=== PATIENT | female | born 1960 | race African-American/Black ===

== ENCOUNTER 2017-03-22 10:58 | Inpatient (IN) | payer OTHER ==
[2017-03-22 12:49] VITALS: BMI 27.1
--- NOTE | 2017-03-22 15:01 | HP ---
CIWA Score - CIWA Score Nausea/Vomitin-No Nausea/No Vomiting Muscle Tremors: 4-Moderate,w/Arms Extend Anxiety: 4-Mod. Anxious/Guarded Agitation: 3 Paroxysmal Sweats: 2 Orientation: 0-Oriented Tacttile Disturbances: 3-Moderate Itch/Numb/Burn Auditory Disturbances: 0-None Visual Disturbances: 0-None Headache: 2-Mild CIWA-Ar Total Score: 18 Admission ROS BHS - HPI Chief Complaint: DETOX TX FOR ALCOHOL DEPENDENCE Allergies/Adverse Reactions: Allergies Allergy/AdvReac Type Severity Reaction Status Date / Time No Known Allergies Allergy Verified 03/22/17 12:56 History of Present Illness: 56 Y/O AA/FEMALE WITH A HX OF ALCOHOL AND COCAINE DEPENDENCE SEEKING DETOX TX Exam Limitations: No Limitations - Ebola screening Have you traveled outside of the country in the last 21 days: No Have you had contact with anyone from an Ebola affected area: No Have you been sick,other than usual withdrawal symptoms: No - Review of Systems Constitutional: Chills, Loss of Appetite, Night Sweats, Changes in sleep, Unintentional Wgt. Loss EENT: reports: Blurred Vision, Nose Bleeding, Nose Congestion, Dental Problems ( NO TEETH BILATERAL, WEARS DENTURES) Respiratory: reports: SOB with Exertion Cardiac: reports: Lightheadedness GI: reports: Diarrhea, Nausea, Poor Appetite, Poor Fluid Intake, Vomiting : reports: No Symptoms Reported Musculoskeletal: reports: Back Pain, Joint Pain, Muscle Pain, Other (HX ARTHRITIS) Integumentary: reports: No Symptoms Reported Neuro: reports: Headache, Numbness, Tingling, Tremors, Unsteady Gait, Dizziness Endocrine: reports: No Symptoms Reported Hematology: reports: Anemia ("SUPPOSED TO TAKE IRON PILL BUT NOT") Psychiatric: reports: Orientated x3, Anxious, Depressed (HX BIPOLAR; NOT CURRENTLY ON MEDS) Other Systems: Reviewed and Negative Patient History - Patient Medical History Hx Anemia: Yes Hx Asthma: No Hx Chronic Obstructive Pulmonary Disease (COPD): No Hx Cardiac Disorders: No Hx Hypertension: Yes (on meds) Hx Hypercholesterolemia: Yes (NOT CURRENTLY ON MEDS) HX Cerebrovascular Accident: Yes (MILD STROKE LEFT SIDE X 2-NO RESIDUAL WEAKNESS /EFFECTS) Hx Seizures: No Hx Diabetes: Yes (Type II DM) Hx Gastrointestinal Disorders: Yes (GERD-ON PPI IN THE PAST) Hx Genitourinary Disorders: No Hx Sexually Transmitted Disorders: No Hx Renal Disease (ESRD): No Hx Thyroid Disease: No Hx Human Immunodeficiency Virus (HIV): No (NEGATIVE HX) Hx Hepatitis C: Yes (NO TREATMENT) Hx Depression: Yes (NOT CURRENTLY ON MEDS) Hx Suicide Attempt: No Hx Bipolar Disorder: Yes Hx Schizophrenia: Yes - Patient Surgical History Past Surgical History: Yes Hx Neurologic Surgery: No Hx Cataract Extraction: No Hx Cardiac Surgery: No Hx Lung Surgery: No Hx Breast Surgery: No Hx Breast Biopsy: No Hx Abdominal Surgery: Yes Hx Appendectomy: No Hx Cholecystectomy: No Hx Genitourinary Surgery: No Hx Section: No Hx Orthopedic Surgery: Yes (nose fractured 20yrs ago) Other Surgical History: TUBAL LIGATION ABD HERNIA REPAIR A CHILD. Anesthesia Reaction: No - PPD History Previous Implant?: Yes Documented Results: Negative w/o proof Implanted On Prior [facility] Admission?: Yes Date: 01/27/13 Results: 0 mm - Reproductive History Patient is a Female of Child Bearing Age (11 -55 yrs old): Yes (POST MENOPAUSAL WOMAN) Last Menstrual Period: 12/09/10 LMP comment: AT 50 YRS OLD Patient : No - Smoking Cessation Smoking history: Current every day smoker Have you smoked in the past 12 months: Yes Aproximately how many cigarettes per day: 5 Hx Chewing Tobacco Use: No Initiated information on smoking cessation: Yes 'Breaking Loose' booklet given: 03/22/17 - Substance & Tx. History Hx Alcohol Use: Yes (BEER) Hx Substance Use: Yes (CRACK) Substance Use Type: Alcohol, Cocaine Hx Substance Use Treatment: Yes ([facility]) - Substances Abused Alcohol Route: Oral Frequency: Daily Amount used: 4 40 OZ Age of first use: 13 Date of Last Use: 03/22/17 Crack Route: Smoking Frequency: Daily Amount used: $40 Age of first use: 21 Date of Last Use: 03/19/17 Family Disease History - Family Disease History Family History: Denies (STSTES NO KNOWLEDGE) Admission Physical Exam S - Vital Signs Vital Signs: Vital Signs - 24 hr 03/22/17 12:48 Temperature 98.5 F Pulse Rate 154 H Respiratory 20 Rate Blood Pressure 148/89 - Physical General Appearance: Yes: Moderate Distress, Alcohol on Breath, Intoxicated, Irritable, Anxious HEENTM: Yes: EOMI, Normocephalic, SUNG, Pharynx Normal Respiratory: Yes: Chest Non-Tender, Lungs Clear, Normal Breath Sounds, No Respiratory Distress Breast: Yes: Breast Exam Deferred Cardiology: Yes: Regular Rhythm, Regular Rate, S1, S2 Abdominal: Yes: Normal Bowel Sounds, Non Tender, Soft Genitourinary: Yes: Other (N/C) Back: Yes: Within Normal Limits Musculoskeletal: Yes: full range of Motion, Gait Steady Extremities: Yes: Normal Range of Motion, Non-Tender 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 NML intact, Fully Oriented, Alert Integumentary: Yes: Dry, Warm Lymphatic: Yes: Within Normal Limits - Diagnostic (1) Alcohol dependence with uncomplicated withdrawal Current Visit: Yes Status: Acute (2) Type 2 diabetes mellitus Current Visit: Yes Status: Chronic (3) Hypertension Current Visit: Yes Status: Chronic Qualifiers: Hypertension type: essential hypertension Qualified Code(s): I10 - Essential (primary) hypertension (4) GERD (gastroesophageal reflux disease) Current Visit: Yes Status: Chronic Qualifiers: Esophagitis presence: without esophagitis Qualified Code(s): K21.9 - Gastro-esophageal reflux disease without esophagitis (5) Hx of hepatitis C Current Visit: Yes Status: Chronic (6) History of CVA (cerebrovascular accident) without residual deficits Current Visit: Yes Status: Suspected (7) History of anemia Current Visit: Yes Status: Suspected Cleared for Admission [facility] - Detox or Rehab [facility] Level of Care: Medically Managed Detox Regimen/Protocol: Librium [facility] Breath Alcohol Content Breath Alcohol Content: 0.224 Urine Pregancy Test - Result Urine Test Results: Negative- NO Line Present Urine Drug Screen - Results Drug Screen Negative: Yes
[2017-03-22] MEDS ORDERED: P-EPHED 60MG/TRIPROLIDI 2.5MG TABLET PO PRN (15:26)
[2017-03-22] MEDS ORDERED: NICOTINE POLACRILEX 2 MG GUM BUC PRN (15:26)
[2017-03-22] MEDS ORDERED: MAGNESIUM CITRATE 300 ML BOTTLE PO PRN (15:26)
[2017-03-22] MEDS ORDERED: MAGNESIUM HYDROX 2400MG/30ML ORAL SUSPENSION 30 ML CUP PO PRN (15:26)
[2017-03-22] MEDS ORDERED: hydrOXYzine PAMOATE 25 MG CAPSULE (FP) PO PRN (15:26)
[2017-03-22] MEDS ORDERED: guaiFENesin/D-METHORPHAN HB 10 ML UNIT-DOSE CUPS PO PRN (15:26)
[2017-03-22] MEDS ORDERED: chlordiazePOXIDE HCL 25 MG CAPSULE PO PRN (15:26)
[2017-03-22] MEDS ORDERED: chlordiazePOXIDE HCL 25 MG CAPSULE PO ONE (15:32)
[2017-03-22] MEDS: LISINOPRIL 10 MG TABLET (FP) PO SCH (17:16)
[2017-03-22] MEDS: LORATADINE 10 MG TABLET PO SCH (17:16)
[2017-03-22] MEDS: metFORMIN HCL 500 MG TABLET (FP) PO SCH (17:17)
[2017-03-22] MEDS: NICOTINE 14 MG/24 HOURS TOPICAL PATCH TD SCH (17:18)
[2017-03-22] MEDS: chlordiazePOXIDE HCL 25 MG CAPSULE PO SCH ×2 (17:19→22:33)
[2017-03-22 20:34] LABS: URINE APPEARANCE CLEAR; URINE BILIRUBIN NEGATIVE (NEGATIVE); URINE BLOOD NEGATIVE (NEGATIVE); URINE COLOR LTYELLOW; URINE GLUCOSE (UA) NEGATIVE (NEGATIVE); URINE KETONE NEGATIVE (NEGATIVE); URINE NITRITE NEGATIVE (NEGATIVE); URINE PROTEIN NEGATIVE (NEGATIVE); URINE UROBILINOGEN NEGATIVE E.U./dl (0.2-1.0)
[2017-03-22 20:36] LABS: URINE LEUK ESTERASE 1+ (NEGATIVE)
[2017-03-22 20:44] LABS: URINE BACTERIA FEW /hpf (NONE SEEN); URINE MUCUS RARE; URINE RBC <1 /hpf (0-3); URINE WBC 1 /hpf (3-5)
[2017-03-22] MEDS: IBUPROFEN 400 MG TABLET (FP) PO PRN (21:59)
[2017-03-22] MEDS: THIAMINE HCL 100 MG TABLET (FP) PO SCH (22:33)
[2017-03-22] MEDS: diphenhydrAMINE HCL 50 MG CAPSULE PO PRN (22:33)
[2017-03-22] MEDS: RANITIDINE HCL 150 MG TABLET (FP) PO SCH (22:33)
[2017-03-23] MEDS: diphenhydrAMINE HCL 50 MG CAPSULE PO PRN (01:51)
[2017-03-23] MEDS: IBUPROFEN 400 MG TABLET (FP) PO PRN ×2 (04:46→10:25)
[2017-03-23] MEDS: chlordiazePOXIDE HCL 25 MG CAPSULE PO SCH ×4 (04:48→22:48)
[2017-03-23] MEDS ORDERED: CYCLOBENZAPRINE HCL 10 MG TABLET (FP) PO PRN (06:21)
[2017-03-23] MEDS: metFORMIN HCL 500 MG TABLET (FP) PO SCH ×2 (07:40→17:25)
[2017-03-23 10:23] LABS: MCHC 29.2 g/dl (32.0-36.0); MEAN CELL VOLUME 62.4 fl (80-96); MEAN PLT VOLUME 9.9 fl (7.5-11.1); PLATELET COUNT 85 K/MM3 (134-434); RDW 18.8 % (11.6-15.6); WHITE BLOOD COUNT 7.4 K/mm3 (4.0-10.0)
[2017-03-23] MEDS: LORATADINE 10 MG TABLET PO SCH (10:23)
[2017-03-23] MEDS: RANITIDINE HCL 150 MG TABLET (FP) PO SCH ×2 (10:23→22:49)
[2017-03-23] MEDS: LISINOPRIL 10 MG TABLET (FP) PO SCH (10:23)
[2017-03-23] MEDS: ASPIRIN COATED 81 MG TABLET.EC PO SCH (10:23)
[2017-03-23] MEDS: PRENATAL VITAMINS W/ FOLIC ACID TABLET (FP) PO SCH (10:23)
[2017-03-23 10:27] LABS: MCH 18.2 pg (25.7-33.7)
[2017-03-23] MEDS: NICOTINE 14 MG/24 HOURS TOPICAL PATCH TD SCH (10:27)
--- NOTE | 2017-03-23 10:42 | PN ---
[facility] CIWA - CIWA Score Nausea/Vomitin-No Nausea/No Vomiting Muscle Tremors: 4-Moderate,w/Arms Extend Anxiety: 3 Agitation: 4-Moderately Restless Paroxysmal Sweats: 3 Orientation: 0-Oriented Tacttile Disturbances: 0-None Auditory Disturbances: 0-None Visual Disturbances: 0-None Headache: 1-Very Mild CIWA-Ar Total Score: 15 [facility] Progress Note (SOAP) Subjective: shakes sweats headache interrupted sleep body aches Objective: 03/23/17 10:40 Vital Signs Temperature 97.5 F L 03/23/17 09:56 Pulse Rate 89 03/23/17 09:56 Respiratory Rate 16 03/23/17 09:56 Blood Pressure 145/108 03/23/17 09:56 O2 Sat by Pulse Oximetry (%) Laboratory Tests 03/22/17 03/22/17 03/22/17 13:13 17:10 20:07 WBC RBC Hgb Hct MCV MCHC RDW Plt Count MPV POC Glucometer 158 86 Urine Color Ltyellow Urine Appearance Clear Urine pH 7.0 D Ur Specific [place] 1.010 Urine Protein Negative Urine Glucose (UA) Negative Urine Ketones Negative Urine Blood Negative Urine Nitrite Negative Urine Bilirubin Negative Urine Urobilinogen Negative Ur Leukocyte Esterase 1+ H Urine RBC <1 Urine WBC 1 Ur Epithelial Cells Rare Urine Bacteria Few Urine Mucus Rare 03/23/17 03/23/17 06:00 06:34 WBC 7.4 D RBC 4.26 Hgb 7.8 L D Hct 26.6 L D MCV 62.4 L D MCHC 29.2 L RDW 18.8 H D Plt Count 85 L MPV 9.9 D POC Glucometer 87 Urine Color Urine Appearance Urine pH Ur Specific [place] Urine Protein Urine Glucose (UA) Urine Ketones Urine Blood Urine Nitrite Urine Bilirubin Urine Urobilinogen Ur Leukocyte Esterase Urine RBC Urine WBC Ur Epithelial Cells Urine Bacteria Urine Mucus rest of labs pending H:H low; iron sulfate tid awake/alert ambulating no acute distress Assessment: 03/23/17 10:40 withdrawal sx Plan: continue detox increase fluids repeat cbc motrin/tylenol prn
[2017-03-23 10:54] LABS: CALCIUM 8.3 mg/dL (8.5-10.1)
[2017-03-23 11:01] LABS: ALK PHOS 77 U/L (45-117); ANION GAP 12 (8-16); BILIRUBIN,TOTAL 0.7 mg/dL (0.2-1.0); CO2 24 mmol/L (21-32); CREATININE 0.8 mg/dL (0.55-1.02); GLUCOSE,RANDOM 84 mg/dL (74-106); SGOT/AST 74 U/L (15-37); SGPT/ALT 31 U/L (12-78); TOT PROT 8.1 g/dl (6.4-8.2)
[2017-03-23] MEDS: FERROUS SO4 325 MG TABLET (FP) PO SCH ×2 (12:35→17:25)
[2017-03-23 14:19] LABS: ANISOCYTOSIS 1+; HYPOCHROMIA 2+; MICROCYTOSIS 1+; PLATELET ESTIMATE DECREASED (NORMAL)
--- NOTE | 2017-03-23 14:35 | CONSULT ---
[facility] Psychiatric Consult - Data Date of interview: 03/23/17 Admission source: [facility] Identifying data: Ms Garcia is a 56 years old Black female, mother of 3 children, unemployed on SSI, domiciled seeking detox treatment for alcohol and cocaine Substance Abuse History: - Smoking Cessation. Smoking history: Current every day smoker. Have you smoked in the past 12 months: Yes. Aproximately how many cigarettes per day: 5. Hx Chewing Tobacco Use: No. Initiated information on smoking cessation: Yes. 'Breaking Loose' booklet given: 03/22/17. - Substance & Tx. History. Hx Alcohol Use: Yes (BEER). Hx Substance Use: Yes (CRACK). Substance Use Type: Alcohol, Cocaine. Hx Substance Use Treatment: Yes ([facility]- [facility]). - Substances Abused. Alcohol. Route: Oral. Frequency: Daily. Amount used: 4 40 OZ. Age of first use: 13. Date of Last Use: 03/22/17. Crack. Route: Smoking. Frequency: Daily. Amount used: $40. Age of first use : 21. Date of Last Use: 03/19/17 Medical History: Significant for Anemia, HTN, Hyperlipidemia, type 2 DM, GERD, Hep C, CVA and surgery for fracture nose, tubal ligation and hernia Psychiatric History: Patient is a poor historian. However, reports that her first psychiatric contact was approximately 6 years ago for hearing voices. Claims she was diagnosed with Bipolar/Schizophrenia. Reports one previous psychiatric admission at [facility] for hearing voices. Claims that 2 months ago she was admitted at [place] ED for 2 days for AH under the influence of drug. claims that she was not treated with medication. Reports non- compliance with OPD care but takes medications. She could not tell name of medicaton but according to her home med info from [facility], she is on Wellbutrin XL 150 mg po daily and Trazadone 50 mg po Mental Status Exam - Mental Status Exam Alert and Oriented to: Time, Place, Person Cognitive Function: Fair Patient Appearance: Well Groomed Mood: Hopeful, Euthymic Affect: Blunted Patient Behavior: Cooperative Speech Pattern: Clear Voice Loudness: Normal Thought Process: Intact Thought Disorder: Not Present Hallucinations: Denies Suicidal Ideation: Denies Homicidal Ideation: Denies Insight/Judgement: Poor Sleep: Poorly Appetite: Fair Muscle strength/Tone: Normal Gait/Station: Normal Psychiatric Findings - Problem List ([place] 1, 2,3) (1) Mood disorder Current Visit: Yes Status: Acute (2) Bipolar disorder Current Visit: Yes Status: Ruled-out (3) Schizoaffective disorder Current Visit: Yes Status: Ruled-out (4) Alcohol dependence with uncomplicated withdrawal Current Visit: Yes Status: Acute (5) Cocaine dependence Current Visit: Yes Status: Acute (6) Nicotine dependence Current Visit: Yes Status: Acute (7) GERD (gastroesophageal reflux disease) Current Visit: Yes Status: Chronic Qualifiers: Qualified Code(s): K21.9 - Gastro-esophageal reflux disease without esophagitis (8) Hx of hepatitis C Current Visit: Yes Status: Chronic (9) Hypertension Current Visit: Yes Status: Chronic Qualifiers: Qualified Code(s): I10 - Essential (primary) hypertension (10) Type 2 diabetes mellitus Current Visit: Yes Status: Chronic (11) History of CVA (cerebrovascular accident) without residual deficits Current Visit: Yes Status: Suspected (12) History of anemia Current Visit: Yes Status: Suspected - Initial Treatment Plan Initial Treatment Plan: 1) Continue Wellbutrin XL 150 mg po daily and Trazadone 50 mg po HS. 2) Continue inpt detoxification
[2017-03-23 14:59] LABS: SICKLE CELL SCREEN NEGATIVE (NEGATIVE)
[2017-03-23] MEDS ORDERED: cloNIDine HCL 0.1 MG TABLET PO ONE (15:05)
--- NOTE | 2017-03-23 17:19 | EKG ---
Test Reason : Blood Pressure : / mmHG Vent. Rate : 086 BPM Atrial Rate : 086 BPM P-R Int : 164 ms QRS Dur : 074 ms QT Int : 404 ms P-R-T Axes : 065 029 048 degrees QTc Int : 483 ms NORMAL SINUS RHYTHM POSSIBLE LEFT ATRIAL ENLARGEMENT PROLONGED QT ABNORMAL ECG WHEN COMPARED WITH ECG OF 22-MAR-2017 16:20, SINUS RHYTHM HAS REPLACED ATRIAL FLUTTER T WAVE VARIATION Confirmed by GIANA MARTINEZ, CLEOPATRA ([id number]) on 03/23/2017 5:19:09 PM Referred By: Jt Ruelas Confirmed By:CLEOPATRA FARIA MD
--- NOTE | 2017-03-23 17:21 | EKG ---
Test Reason : Blood Pressure : / mmHG Vent. Rate : 108 BPM Atrial Rate : 394 BPM P-R Int : 000 ms QRS Dur : 078 ms QT Int : 300 ms P-R-T Axes : 000 023 002 degrees QTc Int : 402 ms ATRIAL FLUTTER WITH VARIABLE A-V BLOCK SEPTAL INFARCT , AGE UNDETERMINED ABNORMAL ECG NO PREVIOUS ECGS AVAILABLE Confirmed by GIANA MARTINEZ, CLEOPATRA ([id number]) on 03/23/2017 5:20:59 PM Referred By: Jt Ruelas Confirmed By:CLEOPATRA FARIA MD
[2017-03-23] MEDS: traZODone HCL 50 MG TABLET (FP) PO SCH (22:48)
[2017-03-23] MEDS: cloNIDine HCL 0.1 MG TABLET PO SCH (22:48)
[2017-03-23] MEDS: THIAMINE HCL 100 MG TABLET (FP) PO SCH (22:48)
--- NOTE | 2017-03-24 05:16 | PN ---
[facility] Progress Note Note: INFORMED OF A REPORTED FALL AFTER CLIENTS ROOMMATE REPORTED ASSISTED PT. TO BED FROM FLOOR TO RN. CLIENTS STATES "I THOUGHT I WAS IN MY LILY BED" DENIES ANY INJURIES, SOB, DIZZINESS, HEAD TRAUMA, C.P., PAIN O- Vital Signs Temperature 97.9 F 03/24/17 06:25 Pulse Rate 75 03/24/17 06:25 Respiratory Rate 16 03/24/17 06:25 Blood Pressure 118/77 03/24/17 06:25 O2 Sat by Pulse Oximetry (%) BGM 88MG/DL CLIENT SEEN LYING IN BED NAD. EASILY AROUSABLE. A/OX3. HEAD- NCAT SKIN- SUPERFICIAL ABRASION AND REDNESS TO R LATERAL ELBOW EXTREMITIES- FROM X4 W/O LIMITATIONS OR INJURIES BACK- NL FINDINGS A- S/P REPORTED FALL P- BGM NOW FALL PROTOCOL #2 BACITRACIN DAILY TO R ELBOW X 3 D CONT DETOX TYLENOL/MOTRIN FOR DELAYED PAIN
[2017-03-24] MEDS: MAG HYDROX/AL HYDROX/SIMETH 30 ML UNIT-DOSE CUP PO PRN (06:24)
[2017-03-24] MEDS: chlordiazePOXIDE HCL 25 MG CAPSULE PO SCH ×2 (07:25→10:45)
[2017-03-24] MEDS: FERROUS SO4 325 MG TABLET (FP) PO SCH ×3 (07:25→17:09)
[2017-03-24 10:11] LABS: BASOPHIL 0.6 % (0-2.0); EOSINOPHIL 0.9 % (0-4.5); MCHC 29.5 g/dl (32.0-36.0); MEAN CELL VOLUME 62.8 fl (80-96); NEUTROPHILS 73.3 % (42.8-82.8); PLATELET COUNT 62 K/MM3 (134-434)
[2017-03-24 10:14] LABS: MCH 18.5 pg (25.7-33.7)
[2017-03-24] MEDS: NICOTINE 14 MG/24 HOURS TOPICAL PATCH TD SCH (10:44)
[2017-03-24] MEDS: metFORMIN HCL 500 MG TABLET (FP) PO SCH ×2 (10:44→17:10)
[2017-03-24] MEDS: BACITRACIN 0.9 GM PACKET TP SCH (10:44)
[2017-03-24] MEDS: PRENATAL VITAMINS W/ FOLIC ACID TABLET (FP) PO SCH (10:44)
[2017-03-24] MEDS: ASPIRIN COATED 81 MG TABLET.EC PO SCH (10:45)
[2017-03-24] MEDS: RANITIDINE HCL 150 MG TABLET (FP) PO SCH ×2 (10:45→23:03)
[2017-03-24] MEDS: LISINOPRIL 10 MG TABLET (FP) PO SCH (10:45)
[2017-03-24] MEDS: cloNIDine HCL 0.1 MG TABLET PO SCH ×2 (10:45→23:14)
[2017-03-24] MEDS: IBUPROFEN 400 MG TABLET (FP) PO PRN (11:20)
[2017-03-24] MEDS: LORATADINE 10 MG TABLET PO SCH (11:20)
--- NOTE | 2017-03-24 12:23 | PN ---
S CIWA - CIWA Score Nausea/Vomitin Muscle Tremors: 2 Anxiety: 2 Agitation: 2 Paroxysmal Sweats: 3 Orientation: 0-Oriented Tacttile Disturbances: 2-Mild Itch/Numbness/Burn Auditory Disturbances: 0-None Visual Disturbances: 0-None Headache: 2-Mild CIWA-Ar Total Score: 16 [facility] Progress Note (SOAP) Subjective: interrupted sleep, sweats, shakes, diarrhea, headache Objective: 03/24/17 12:21 Vital Signs Temperature 98.1 F 03/24/17 10:06 Pulse Rate 94 H 03/24/17 10:06 Respiratory Rate 18 03/24/17 10:06 Blood Pressure 114/84 03/24/17 10:06 O2 Sat by Pulse Oximetry (%) Laboratory Tests 03/22/17 03/22/17 03/22/17 13:13 17:10 20:07 WBC RBC Hgb Hct MCV MCHC RDW Plt Count MPV Neutrophils % Lymphocytes % Monocytes % Eosinophils % Basophils % Platelet Estimate Platelet Comment Hypochromic-Microcytic Anisocytosis Microcytosis Sickle Cell Screen Sodium Potassium Chloride Carbon Dioxide Anion Gap BUN Creatinine Creat Clearance w eGFR POC Glucometer 158 86 Random Glucose Calcium Total Bilirubin AST ALT Alkaline Phosphatase Total Protein Albumin Urine Color Ltyellow Urine Appearance Clear Urine pH 7.0 D Ur Specific [place] 1.010 Urine Protein Negative Urine Glucose (UA) Negative Urine Ketones Negative Urine Blood Negative Urine Nitrite Negative Urine Bilirubin Negative Urine Urobilinogen Negative Ur Leukocyte Esterase 1+ H Urine RBC <1 Urine WBC 1 Ur Epithelial Cells Rare Urine Bacteria Few Urine Mucus Rare RPR Titer 03/23/17 03/23/17 03/23/17 06:00 06:00 06:00 WBC 7.4 D RBC 4.26 Hgb 7.8 L D Hct 26.6 L D MCV 62.4 L D MCHC 29.2 L RDW 18.8 H D Plt Count 85 L MPV 9.9 D Neutrophils % Lymphocytes % Monocytes % Eosinophils % Basophils % Platelet Estimate Decreased Platelet Comment No clumping noted Hypochromic-Microcytic 2+ Anisocytosis 1+ Microcytosis 1+ Sickle Cell Screen Negative Sodium 142 Potassium 3.7 Chloride 106 Carbon Dioxide 24 Anion Gap 12 BUN 12 Creatinine 0.8 Creat Clearance w eGFR > 60 POC Glucometer Random Glucose 84 D Calcium 8.3 L Total Bilirubin 0.7 D AST 74 H D ALT 31 D Alkaline Phosphatase 77 D Total Protein 8.1 D Albumin 3.0 L Urine Color Urine Appearance Urine pH Ur Specific [place] Urine Protein Urine Glucose (UA) Urine Ketones Urine Blood Urine Nitrite Urine Bilirubin Urine Urobilinogen Ur Leukocyte Esterase Urine RBC Urine WBC Ur Epithelial Cells Urine Bacteria Urine Mucus RPR Titer Nonreactive 03/23/17 03/23/17 03/24/17 06:34 16:55 05:56 WBC RBC Hgb Hct MCV MCHC RDW Plt Count MPV Neutrophils % Lymphocytes % Monocytes % Eosinophils % Basophils % Platelet Estimate Platelet Comment Hypochromic-Microcytic Anisocytosis Microcytosis Sickle Cell Screen Sodium Potassium Chloride Carbon Dioxide Anion Gap BUN Creatinine Creat Clearance w eGFR POC Glucometer 87 114 88 Random Glucose Calcium Total Bilirubin AST ALT Alkaline Phosphatase Total Protein Albumin Urine Color Urine Appearance Urine pH Ur Specific [place] Urine Protein Urine Glucose (UA) Urine Ketones Urine Blood Urine Nitrite Urine Bilirubin Urine Urobilinogen Ur Leukocyte Esterase Urine RBC Urine WBC Ur Epithelial Cells Urine Bacteria Urine Mucus RPR Titer 03/24/17 07:00 WBC 7.0 RBC 4.38 Hgb 8.1 L Hct 27.5 L MCV 62.8 L MCHC 29.5 L RDW 19.0 H Plt Count 62 L D MPV 9.0 Neutrophils % 73.3 Lymphocytes % 11.2 Monocytes % 14.0 H Eosinophils % 0.9 Basophils % 0.6 Platelet Estimate Platelet Comment Hypochromic-Microcytic Anisocytosis Microcytosis Sickle Cell Screen Sodium Potassium Chloride Carbon Dioxide Anion Gap BUN Creatinine Creat Clearance w eGFR POC Glucometer Random Glucose Calcium Total Bilirubin AST ALT Alkaline Phosphatase Total Protein Albumin Urine Color Urine Appearance Urine pH Ur Specific [place] Urine Protein Urine Glucose (UA) Urine Ketones Urine Blood Urine Nitrite Urine Bilirubin Urine Urobilinogen Ur Leukocyte Esterase Urine RBC Urine WBC Ur Epithelial Cells Urine Bacteria Urine Mucus RPR Titer pt aox3 in nad ambulating Assessment: 03/24/17 12:22 withdrawal sx's elbow improving diarrhea Plan: cont. detox increase fluids mom \ motrin prn
[2017-03-24] MEDS: ACETAMINOPHEN 325 MG TABLET (FP) PO PRN (13:31)
[2017-03-24] MEDS: MENTHOL/PHENOL 1 EACH UD MM PRN ×2 (13:33→19:39)
[2017-03-24] MEDS: chlordiazePOXIDE 5 MG CAPSULE PO SCH ×2 (17:10→23:04)
[2017-03-24] MEDS: THIAMINE HCL 100 MG TABLET (FP) PO SCH (23:03)
[2017-03-24] MEDS: traZODone HCL 50 MG TABLET (FP) PO SCH (23:04)
[2017-03-25] MEDS: chlordiazePOXIDE 5 MG CAPSULE PO SCH ×2 (06:10→11:05)
[2017-03-25] MEDS: metFORMIN HCL 500 MG TABLET (FP) PO SCH ×2 (07:21→17:45)
[2017-03-25] MEDS: IBUPROFEN 400 MG TABLET (FP) PO PRN (07:21)
[2017-03-25] MEDS: FERROUS SO4 325 MG TABLET (FP) PO SCH ×3 (07:21→17:45)
[2017-03-25] MEDS: BACITRACIN 0.9 GM PACKET TP SCH (11:04)
[2017-03-25] MEDS: LORATADINE 10 MG TABLET PO SCH (11:04)
[2017-03-25] MEDS: ASPIRIN COATED 81 MG TABLET.EC PO SCH (11:04)
[2017-03-25] MEDS: NICOTINE 14 MG/24 HOURS TOPICAL PATCH TD SCH (11:05)
[2017-03-25] MEDS: cloNIDine HCL 0.1 MG TABLET PO SCH ×2 (11:05→22:43)
[2017-03-25] MEDS: RANITIDINE HCL 150 MG TABLET (FP) PO SCH ×2 (11:05→22:45)
[2017-03-25] MEDS: PRENATAL VITAMINS W/ FOLIC ACID TABLET (FP) PO SCH (11:05)
[2017-03-25] MEDS: LISINOPRIL 10 MG TABLET (FP) PO SCH (11:05)
[2017-03-25] MEDS: MAG HYDROX/AL HYDROX/SIMETH 30 ML UNIT-DOSE CUP PO PRN (11:20)
[2017-03-25] MEDS ORDERED: SIMETHICONE 80 MG TAB.CHEW (FP) PO PRN (11:25)
[2017-03-25] MEDS ORDERED: IBUPROFEN 400 MG TABLET (FP) PO PRN (11:26)
--- NOTE | 2017-03-25 11:28 | PN ---
[facility] Progress Note (SOAP) Subjective: sweats achy bones abdominal gas Objective: 03/25/17 11:27 Vital Signs Temperature 98.4 F 03/25/17 09:42 Pulse Rate 89 03/25/17 09:42 Respiratory Rate 18 03/25/17 09:42 Blood Pressure 115/74 03/25/17 09:42 O2 Sat by Pulse Oximetry (%) awake/alert ambulating no acute distress Assessment: 03/25/17 11:27 withdrawal sx Plan: continue detox increase fluids simethiacone prn motrin 800mg prn
[2017-03-25] MEDS: LOPERAMIDE HCL 2 MG CAPSULE PO PRN ×2 (15:08→22:44)
[2017-03-25] MEDS: chlordiazePOXIDE HCL 10 MG CAPSULE PO SCH ×2 (17:45→22:44)
[2017-03-25] MEDS: traZODone HCL 50 MG TABLET (FP) PO SCH (22:44)
[2017-03-25] MEDS: THIAMINE HCL 100 MG TABLET (FP) PO SCH (22:45)
[2017-03-26] MEDS: ACETAMINOPHEN 325 MG TABLET (FP) PO PRN ×2 (00:28→17:00)
[2017-03-26] MEDS ORDERED: TRIMETHOBENZAMIDE HCL 200MG/2ML INJ IM PRN (02:29)
--- NOTE | 2017-03-26 02:33 | PN ---
[facility] Progress Note Note: Pt. had an unwitnessed fall getting out of bed. She reports she did not hit her head and landed on her right buttock. She was assessed while eating in bed. FROM, mild tenderness on palpation, no bruises noted. Pt. is A&o x 2 with periods of confusion and sluggishness. Vital Signs 03/25/17 03/25/17 03/26/17 18:39 22:38 02:00 Temperature 98.8 F 101.7 F H 100.8 F H Pulse Rate 83 88 84 Respiratory 18 16 18 Rate Blood Pressure 126/79 125/75 117/61 Plan: ammonia and cmp labs ordered. Fall protocol # 2 initiated. She is scheduled for discharge today but discharge will be dependent on results of labs. Will continue to monitor.
[2017-03-26] MEDS: chlordiazePOXIDE HCL 10 MG CAPSULE PO SCH (08:05)
[2017-03-26] MEDS: metFORMIN HCL 500 MG TABLET (FP) PO SCH ×2 (08:05→17:01)
[2017-03-26] MEDS: FERROUS SO4 325 MG TABLET (FP) PO SCH ×3 (08:06→17:01)
[2017-03-26] MEDS: cloNIDine HCL 0.1 MG TABLET PO SCH ×2 (09:55→22:43)
[2017-03-26] MEDS: BACITRACIN 0.9 GM PACKET TP SCH (09:55)
[2017-03-26] MEDS: PRENATAL VITAMINS W/ FOLIC ACID TABLET (FP) PO SCH (09:55)
[2017-03-26] MEDS: RANITIDINE HCL 150 MG TABLET (FP) PO SCH ×2 (09:56→22:43)
[2017-03-26] MEDS: NICOTINE 14 MG/24 HOURS TOPICAL PATCH TD SCH (09:56)
[2017-03-26] MEDS: ASPIRIN COATED 81 MG TABLET.EC PO SCH (09:56)
[2017-03-26] MEDS: LORATADINE 10 MG TABLET PO SCH (09:56)
[2017-03-26] MEDS: LISINOPRIL 10 MG TABLET (FP) PO SCH (09:56)
[2017-03-26 10:34] LABS: ALBUMIN 2.9 g/dl (3.4-5.0); CALCIUM 8.1 mg/dL (8.5-10.1)
[2017-03-26 10:40] LABS: BILIRUBIN,TOTAL 1.1 mg/dL (0.2-1.0); COCKROFT - GAULT 55.25; CREATININE 1.2 mg/dL (0.55-1.02); TOT PROT 7.1 g/dl (6.4-8.2)
[2017-03-26] MEDS ORDERED: LACTULOSE 20 GM/30 ML UDC (FOR ORAL USE ONLY) PO ONE (11:43)
--- NOTE | 2017-03-26 11:52 | PN ---
[facility] Progress Note (SOAP) Subjective: groggy uncomfortable Objective: 03/26/17 11:46 Vital Signs Temperature 99 F 03/26/17 10:38 Pulse Rate 82 03/26/17 10:38 Respiratory Rate 18 03/26/17 10:38 Blood Pressure 96/59 03/26/17 10:38 O2 Sat by Pulse Oximetry (%) Laboratory Tests 03/22/17 03/22/17 03/22/17 13:13 17:10 20:07 WBC RBC Hgb Hct MCV MCHC RDW Plt Count MPV Neutrophils % Lymphocytes % Monocytes % Eosinophils % Basophils % Platelet Estimate Platelet Comment Hypochromic-Microcytic Anisocytosis Microcytosis Sickle Cell Screen Sodium Potassium Chloride Carbon Dioxide Anion Gap BUN Creatinine Creat Clearance w eGFR POC Glucometer 158 86 Random Glucose Calcium Total Bilirubin AST ALT Alkaline Phosphatase Ammonia Total Protein Albumin Urine Color Ltyellow Urine Appearance Clear Urine pH 7.0 D Ur Specific [place] 1.010 Urine Protein Negative Urine Glucose (UA) Negative Urine Ketones Negative Urine Blood Negative Urine Nitrite Negative Urine Bilirubin Negative Urine Urobilinogen Negative Ur Leukocyte Esterase 1+ H Urine RBC <1 Urine WBC 1 Ur Epithelial Cells Rare Urine Bacteria Few Urine Mucus Rare RPR Titer 03/23/17 03/23/17 03/23/17 06:00 06:00 06:00 WBC 7.4 D RBC 4.26 Hgb 7.8 L D Hct 26.6 L D MCV 62.4 L D MCHC 29.2 L RDW 18.8 H D Plt Count 85 L MPV 9.9 D Neutrophils % Lymphocytes % Monocytes % Eosinophils % Basophils % Platelet Estimate Decreased Platelet Comment No clumping noted Hypochromic-Microcytic 2+ Anisocytosis 1+ Microcytosis 1+ Sickle Cell Screen Negative Sodium 142 Potassium 3.7 Chloride 106 Carbon Dioxide 24 Anion Gap 12 BUN 12 Creatinine 0.8 Creat Clearance w eGFR > 60 POC Glucometer Random Glucose 84 D Calcium 8.3 L Total Bilirubin 0.7 D AST 74 H D ALT 31 D Alkaline Phosphatase 77 D Ammonia Total Protein 8.1 D Albumin 3.0 L Urine Color Urine Appearance Urine pH Ur Specific [place] Urine Protein Urine Glucose (UA) Urine Ketones Urine Blood Urine Nitrite Urine Bilirubin Urine Urobilinogen Ur Leukocyte Esterase Urine RBC Urine WBC Ur Epithelial Cells Urine Bacteria Urine Mucus RPR Titer Nonreactive 03/23/17 03/23/17 03/24/17 06:34 16:55 05:56 WBC RBC Hgb Hct MCV MCHC RDW Plt Count MPV Neutrophils % Lymphocytes % Monocytes % Eosinophils % Basophils % Platelet Estimate Platelet Comment Hypochromic-Microcytic Anisocytosis Microcytosis Sickle Cell Screen Sodium Potassium Chloride Carbon Dioxide Anion Gap BUN Creatinine Creat Clearance w eGFR POC Glucometer 87 114 88 Random Glucose Calcium Total Bilirubin AST ALT Alkaline Phosphatase Ammonia Total Protein Albumin Urine Color Urine Appearance Urine pH Ur Specific [place] Urine Protein Urine Glucose (UA) Urine Ketones Urine Blood Urine Nitrite Urine Bilirubin Urine Urobilinogen Ur Leukocyte Esterase Urine RBC Urine WBC Ur Epithelial Cells Urine Bacteria Urine Mucus RPR Titer 03/24/17 03/24/17 03/25/17 07:00 16:31 06:14 WBC 7.0 RBC 4.38 Hgb 8.1 L Hct 27.5 L MCV 62.8 L MCHC 29.5 L RDW 19.0 H Plt Count 62 L D MPV 9.0 Neutrophils % 73.3 Lymphocytes % 11.2 Monocytes % 14.0 H Eosinophils % 0.9 Basophils % 0.6 Platelet Estimate Platelet Comment Hypochromic-Microcytic Anisocytosis Microcytosis Sickle Cell Screen Sodium Potassium Chloride Carbon Dioxide Anion Gap BUN Creatinine Creat Clearance w eGFR POC Glucometer 119 122 Random Glucose Calcium Total Bilirubin AST ALT Alkaline Phosphatase Ammonia Total Protein Albumin Urine Color Urine Appearance Urine pH Ur Specific [place] Urine Protein Urine Glucose (UA) Urine Ketones Urine Blood Urine Nitrite Urine Bilirubin Urine Urobilinogen Ur Leukocyte Esterase Urine RBC Urine WBC Ur Epithelial Cells Urine Bacteria Urine Mucus RPR Titer 03/25/17 03/26/17 03/26/17 16:45 07:00 07:00 WBC RBC Hgb Hct MCV MCHC RDW Plt Count MPV Neutrophils % Lymphocytes % Monocytes % Eosinophils % Basophils % Platelet Estimate Platelet Comment Hypochromic-Microcytic Anisocytosis Microcytosis Sickle Cell Screen Sodium 138 Potassium 4.1 Chloride 106 Carbon Dioxide 23 Anion Gap 9 BUN 24 H D Creatinine 1.2 H D Creat Clearance w eGFR 46.14 POC Glucometer 110 Random Glucose 92 Calcium 8.1 L Total Bilirubin 1.1 H D AST 51 H D ALT 25 Alkaline Phosphatase 67 Ammonia 142.63 H Total Protein 7.1 Albumin 2.9 L Urine Color Urine Appearance Urine pH Ur Specific [place] Urine Protein Urine Glucose (UA) Urine Ketones Urine Blood Urine Nitrite Urine Bilirubin Urine Urobilinogen Ur Leukocyte Esterase Urine RBC Urine WBC Ur Epithelial Cells Urine Bacteria Urine Mucus RPR Titer 03/26/17 07:24 WBC RBC Hgb Hct MCV MCHC RDW Plt Count MPV Neutrophils % Lymphocytes % Monocytes % Eosinophils % Basophils % Platelet Estimate Platelet Comment Hypochromic-Microcytic Anisocytosis Microcytosis Sickle Cell Screen Sodium Potassium Chloride Carbon Dioxide Anion Gap BUN Creatinine Creat Clearance w eGFR POC Glucometer 108 Random Glucose Calcium Total Bilirubin AST ALT Alkaline Phosphatase Ammonia Total Protein Albumin Urine Color Urine Appearance Urine pH Ur Specific [place] Urine Protein Urine Glucose (UA) Urine Ketones Urine Blood Urine Nitrite Urine Bilirubin Urine Urobilinogen Ur Leukocyte Esterase Urine RBC Urine WBC Ur Epithelial Cells Urine Bacteria Urine Mucus RPR Titer pt has altered mental status. pt was placed on a 1:1 for safety ammonium level 142.63; lactulose ordered tid continue to monitor pt mental status Assessment: 03/26/17 11:49 minimal withdrawal sx Plan: continue to maintain pt on unit for observation libirum detox had d/c lactulose tid continue 1:1 d/c in am only if pt mental status improves.
[2017-03-26] MEDS: LACTULOSE 20 GM/30 ML UDC (FOR ORAL USE ONLY) PO SCH ×3 (13:25→22:43)
[2017-03-26] MEDS: THIAMINE HCL 100 MG TABLET (FP) PO SCH (22:42)
[2017-03-27] MEDS: metFORMIN HCL 500 MG TABLET (FP) PO SCH (08:25)
[2017-03-27] MEDS: FERROUS SO4 325 MG TABLET (FP) PO SCH ×2 (08:25→11:08)
[2017-03-27] MEDS: PRENATAL VITAMINS W/ FOLIC ACID TABLET (FP) PO SCH (11:04)
[2017-03-27] MEDS: ASPIRIN COATED 81 MG TABLET.EC PO SCH (11:04)
[2017-03-27] MEDS: cloNIDine HCL 0.1 MG TABLET PO SCH (11:05)
[2017-03-27] MEDS: RANITIDINE HCL 150 MG TABLET (FP) PO SCH (11:05)
[2017-03-27] MEDS: LISINOPRIL 10 MG TABLET (FP) PO SCH (11:05)
[2017-03-27] MEDS: LORATADINE 10 MG TABLET PO SCH (11:05)
[2017-03-27 11:07] VITALS: BP 106/69; PULSE 78; TEMP 98.2
[2017-03-27] MEDS: LACTULOSE 20 GM/30 ML UDC (FOR ORAL USE ONLY) PO SCH (11:09)
[2017-03-27] MEDS: NICOTINE 14 MG/24 HOURS TOPICAL PATCH TD SCH (11:33)
--- NOTE | 2017-03-27 11:44 | PN ---
[facility] Progress Note (SOAP) Subjective: ALERT,NO COMPLAINT,WOULD LIKE TO GO HOME Objective: 03/27/17 11:40 Vital Signs Temperature 98.2 F 03/27/17 10:00 Pulse Rate 78 03/27/17 10:00 Respiratory Rate 16 03/27/17 10:00 Blood Pressure 106/69 03/27/17 10:00 O2 Sat by Pulse Oximetry (%) Laboratory Results - last 24 hr 03/26/17 03/27/17 03/27/17 16:30 07:50 07:50 POC Glucometer 97 113 Ammonia 40.04 H Assessment: 03/27/17 11:41 PATIENT IS STABLE,NO WITHDRAWAL SYMPTOM,AMBULATION WITH NO DIFFICULTY Plan: DISCHARGE TODAY,FOLLOW UP WITH AFTER CARE PROGRAM ARRANGEMENT AND PMD AT [facility] FOR MEDICAL PROBLEM AND FOLLOW UP,PATIENT WILL BE DROPPED OFF BY [facility]
--- NOTE | 2017-03-27 11:51 | DS ---
[facility] Detox Discharge Summary Admission Date: 03/22/17 Discharge Date: 03/27/17 - History Present History: Alcohol Dependence, Cocaine Dependence Additional Comments: FOLLOW UP WITH AFTER CARE PROGRAM ARRANGEMENT AND PMD AT [facility] FOR FOLLOW UP MEDICAL PROBLEM SOON POSSIBLE Pertinent Past History: TYPE 2 DM HYPERTENSION GERD HEPATITIS C HISTORY OF OLD CVA HISTORY OF ANEMIA HIGH AMMONIA LEVEL - Physical Exam Results Vital Signs: Vital Signs Temperature 98.2 F 03/27/17 10:00 Pulse Rate 78 03/27/17 10:00 Respiratory Rate 16 03/27/17 10:00 Blood Pressure 106/69 03/27/17 10:00 O2 Sat by Pulse Oximetry (%) Pertinent Admission Physical Exam Findings: WITHDRAWAL SYMPTOM - Treatment Hospital Course: Detox Protocol Followed, Detoxed Safely, Responded well, Discharged Condition Good Patient has Accepted a Rehab Referral to: [facility] - Medication Discharge Medications: Ambulatory Orders Bupropion HCl [Wellbutrin Xl -] 150 mg PO DAILY 03/22/17 Folic Acid - 1 mg PO DAILY 03/22/17 Lisinopril 10 mg PO DAILY 03/22/17 Loratadine [Claritin -] 10 mg PO DAILY 03/22/17 Metformin HCl [Glucophage -] 500 mg PO BID 03/22/17 Multivitamin [Poly-Vitamin] 1 each PO DAILY 03/22/17 Trazodone HCl [Desyrel -] 50 mg PO HS 03/22/17 Bupropion HCl [Wellbutrin Xl -] 150 mg PO DAILY #30 tab.sr.24h 03/23/17 Trazodone HCl 50 mg PO HS #30 tablet 03/23/17 Lactulose (Oral Use) [Cephulac -] 20 gm PO QID #28 unit 03/27/17 Ranitidine [Zantac -] 150 mg PO BID #60 tab 03/27/17 - Diagnosis (1) Alcohol dependence with uncomplicated withdrawal Current Visit: Yes Status: Acute (2) Cocaine dependence Current Visit: Yes Status: Acute (3) Nicotine dependence Current Visit: Yes Status: Acute (4) GERD (gastroesophageal reflux disease) Current Visit: Yes Status: Chronic Qualifiers: Esophagitis presence: without esophagitis Qualified Code(s): K21.9 - Gastro-esophageal reflux disease without esophagitis (5) Hx of hepatitis C Current Visit: Yes Status: Chronic (6) Hypertension Current Visit: Yes Status: Chronic Qualifiers: Hypertension type: essential hypertension Qualified Code(s): I10 - Essential (primary) hypertension (7) Type 2 diabetes mellitus Current Visit: Yes Status: Chronic (8) History of CVA (cerebrovascular accident) without residual deficits Current Visit: Yes Status: Suspected (9) History of anemia Current Visit: Yes Status: Suspected (10) Bipolar disorder Current Visit: Yes Status: Ruled-out (11) Increased ammonia level Current Visit: Yes Status: Acute - AMA Did Patient Leave Against Medical Advice: No
== END 2017-03-27 12:10 | disposition home or self-care (01) | DRG 774 ==
LOC: YASAS 10:58 → Y6N 14:14
PROVIDERS: ADMIT Internal Medicine Addiction Medicine; ATTEND Internal Medicine Addiction Medicine
PROC: HZ2ZZZZ Detoxification Services for Substance Abuse Treatment (ICD-10-PCS; principal; 2017-03-27)
DX: F10.230 Alcohol dependence with withdrawal, uncomplicated (principal); F14.20 Cocaine dependence, uncomplicated; F17.210 Nicotine dependence, cigarettes, uncomplicated; F31.9 Bipolar disorder, unspecified; F39 Unspecified mood [affective] disorder; F25.9 Schizoaffective disorder, unspecified; I10 Essential (primary) hypertension; K21.9 Gastro-esophageal reflux disease without esophagitis; B18.2 Chronic viral hepatitis C; E11.9 Type 2 diabetes mellitus without complications; Z79.4 Long term (current) use of insulin; Z86.73 Personal history of transient ischemic attack (TIA), and cerebral infarction without residual deficits
CPT/HCPCS: 36415; 80053; 81003; 81015; 82140; 85025; 85027; 85660; 86593; 93005; 93010